=== PATIENT | male | born 1980 | race Caucasian/White ===

== ENCOUNTER 2018-10-07 13:11 | Emergency (ER) | payer MEDICAID ==
[~2018-10-07] VITALS: Ht 175.3 cm; Wt 59.1 kg
[2018-10-07 13:14] VITALS: BP 152/97
--- NOTE | 2018-10-07 13:20 | NUR ---
ATTEMPTED EKG IN TRIAGE. MACHINE WOULD NOT READ. TRIED X2, MACHINE WOULD NOT READ. PT MOVED TO ROOM 19 TO USE ANOTHER MACHINE
[2018-10-07] MEDS ORDERED: aspirin 81mg tab.chew PO ONE (13:50)
[2018-10-07 14:07] LABS: BASOPHILS # (AUTO) 0.2 X10'3 (0-0.2); BASOPHILS % (AUTO) 1.8 % (0-1); EOSINOPHILS # (AUTO) 0.1 X10'3 (0-0.9); EOSINOPHILS % (AUTO) 1.2 % (0-6); HEMATOCRIT 43.2 % (42.0-52.0); HEMOGLOBIN 14.8 g/dl (14.0-17.9); LYMPHOCYTES # (AUTO) 2.5 X10'3 (1.1-4.8); LYMPHOCYTES % (AUTO) 26.1 % (21-51); MEAN CORPUSCULAR HEMOGLOBIN 30.4 PG (27.0-31.0); MEAN CORPUSCULAR HGB CONC 34.2 g/dL (33.0-36.5); MEAN CORPUSCULAR VOLUME 88.8 FL (78-98); MEAN PLATELET VOLUME 8.5 FL (7.4-10.4); MONOCYTES # (AUTO) 0.8 X10'3 (0-0.9); MONOCYTES % (AUTO) 7.9 % (2-12); NEUTROPHILS # (AUTO) 6.1 X10'3 (1.8-7.7); PLATELET COUNT 343 X10'3 (140-440); RED BLOOD COUNT 4.86 X10'6 (4.70-6.10); RED CELL DISTRIBUTION WIDTH 14.2 % (11.5-14.5); WHITE BLOOD COUNT 9.7 X10'3 (4.5-11.0)
[2018-10-07 14:14] LABS: ALANINE AMINOTRANSFERASE 28 U/L (12-78); ALBUMIN 4.3 G/DL (3.4-5.0); ALBUMIN/GLOBULIN RATIO 1.2 (1.1-1.5); ALKALINE PHOSPHATASE 123 IU/L (46-116); ANION GAP 14 (8-16); ASPARTATE AMINO TRANSFERASE 20 U/L (10-37); BILIRUBIN,TOTAL 0.5 MG/DL (0.1-1.0); BLOOD UREA NITROGEN 9 MG/DL (7-18); BUN/CREATININE RATIO 11.1 (5.4-32.0); CALCIUM 9.3 MG/DL (8.5-10.1); CHLORIDE 101 MMOL/L (99-107); CREATININE 0.81 MG/DL (0.60-1.10); GLUCOSE 85 MG/DL (70-104); SODIUM 140 MMOL/L (135-145); TOTAL CARBON DIOXIDE 25.5 MMOL/L (24-32); TOTAL PROTEIN 7.9 G/DL (6.4-8.2); eGFR > 90 ML/MIN
[2018-10-07 14:21] LABS: MAGNESIUM 1.8 MG/DL (1.5-2.4); POTASSIUM 3.1 MMOL/L (3.5-5.1)
[2018-10-07] MEDS ORDERED: potassium Cl 20 mEq SR tablet PO STA (17:01)
[2018-10-07] MEDS ORDERED: ondansetron 4mg rapidly disintigrating tab PO ONE (17:05)
== END 2018-10-07 18:17 | disposition home or self-care (01) ==
LOC: ER 13:11
DX: R07.9 Chest pain, unspecified (principal); J44.9 Chronic obstructive pulmonary disease, unspecified; F12.90 Cannabis use, unspecified, uncomplicated; Z87.891 Personal history of nicotine dependence; Z88.6 Allergy status to analgesic agent
CPT/HCPCS: 36415; 71045; 80053; 83735; 83880; 84484; 85025; 93005; 99284

== ENCOUNTER 2021-05-18 17:01 | Emergency (ER) | payer MEDICAID ==
[~2021-05-18] VITALS: Ht 177.8 cm; Wt 68.2 kg
[2021-05-18 19:06] VITALS: BP 163/108
== END 2021-05-19 01:07 | disposition left against medical advice (07) ==
LOC: ER 17:02
DX: Z53.21 Procedure and treatment not carried out due to patient leaving prior to being seen by health care provider (principal)

== ENCOUNTER 2023-01-17 18:27 | Emergency (ER) | payer MEDICAID ==
[~2023-01-17] VITALS: Ht 175.3 cm; Wt 65.9 kg
[2023-01-17 18:51] VITALS: BP 160/103
[2023-01-17] MEDS ORDERED: ibuprofen 200mg tablet PO ONE (19:10)
[2023-01-17] MEDS ORDERED: LIDOcaine 1% W/epiNEPHrine 1:100,000 20ml vial SQ ONE (19:10)
== END 2023-01-17 20:37 ==
LOC: ER 18:27
DX: S01.111A Laceration without foreign body of right eyelid and periocular area, initial encounter (principal); Y04.8XXA Assault by other bodily force, initial encounter; Y93.89 Activity, other specified; Y92.89 Other specified places as the place of occurrence of the external cause; Y99.8 Other external cause status
CPT/HCPCS: 12011; 70450; 70486; 72125; 99284

== ENCOUNTER 2023-07-15 23:19 | Inpatient (IN) | payer MEDICAID ==
[~2023-07-15] VITALS: Ht 175.3 cm; Wt 68.2 kg
[2023-07-15 23:51] LABS: BASOPHILS # (AUTO) 0.2 X10'3 (0-0.2); BASOPHILS % (AUTO) 0.6 % (0-1); EOSINOPHILS % (AUTO) 0.2 % (0-6); HEMATOCRIT 51.6 % (42.0-52.0); HEMOGLOBIN 17.5 g/dl (14.0-17.9); LYMPHOCYTES # (AUTO) 2.5 X10'3 (1.1-4.8); LYMPHOCYTES % (AUTO) 8.4 % (21-51); MEAN CORPUSCULAR HEMOGLOBIN 30.8 PG (27.0-31.0); MEAN CORPUSCULAR HGB CONC 33.9 g/dL (33.0-36.5); MEAN CORPUSCULAR VOLUME 90.7 FL (78-98); MEAN PLATELET VOLUME 7.6 FL (7.4-10.4); MONOCYTES # (AUTO) 1.9 X10'3 (0-0.9); MONOCYTES % (AUTO) 6.5 % (2-12); NEUTROPHILS # (AUTO) 25.4 X10'3 (1.8-7.7); NEUTROPHILS % (AUTO) 84.3 % (42-75); PLATELET COUNT 479 X10'3 (140-440); RED BLOOD COUNT 5.69 X10'6 (4.70-6.10); RED CELL DISTRIBUTION WIDTH 14.6 % (11.5-14.5)
[2023-07-15 23:56] LABS: WHITE BLOOD COUNT 30.1 X10'3 (4.5-11.0)
[2023-07-16] LABS: ALANINE AMINOTRANSFERASE 58 U/L (12-78); ALBUMIN 4.4 G/DL (3.4-5.0); ALBUMIN/GLOBULIN RATIO 1.2 (1.1-1.5); ALKALINE PHOSPHATASE 195 IU/L (46-116); ANION GAP 18 (8-16); ASPARTATE AMINO TRANSFERASE 34 U/L (10-37); BILIRUBIN,TOTAL 0.4 MG/DL (0.1-1.0); BLOOD UREA NITROGEN 13 MG/DL (7-18); BUN/CREATININE RATIO 8.9 (10.0-20.0); CALCIUM 9.7 MG/DL (8.5-10.1); CHLORIDE 99 MMOL/L (99-107); CREATININE 1.46 MG/DL (0.60-1.10); GLUCOSE 121 MG/DL (70-104); POTASSIUM 3.5 MMOL/L (3.5-5.1); SODIUM 139 MMOL/L (135-145); TOTAL CARBON DIOXIDE 22.1 MMOL/L (24-32); TOTAL PROTEIN 8.2 G/DL (6.4-8.2); eCRCL 63 ML/MIN; eGFR 53 ML/MIN
[2023-07-16 00:07] LABS: PRO BRAIN NATRIURETIC PEPTIDE < 30 PG/ML (0-125)
[2023-07-16] MEDS ORDERED: ringers solution, lacted 1,000 ML IV ONE (00:10)
[2023-07-16 00:14] LABS: TOTAL CELLS COUNTED 100
[2023-07-16 00:16] LABS: PLATELET ESTIMATE INCREASED; STOMATOCYTES FEW
[2023-07-16] MEDS ORDERED: iohexol 350MG/ML 100ml bottle IV ONE (00:23)
[2023-07-16 00:44] LABS: CREATINE KINASE 115 U/L (39-308); ETHANOL 153 MG/DL (<10)
[2023-07-16 01:10] LABS: ABG HCO3 17.6 mmol/L (22.0-26.0); ABG OXYGEN SATURATION 97.6 % (94-97); ABG PCO2 (T) 21.3 mmHg (35.0-48.0); ABG PH (T) 7.536 (7.340-7.440); ABG PO2 (T) 90.6 mmHg (75.0-100.0); ALLEN'S TEST POSITIVE; FCOHb 1.8 % (0.0-3.9); FHHb 2.3 % (0.0-5.0); FMetHb 0.5 % (0.0-1.5); FO2Hb 95.4 % (94-97); MODE ROOM AIR; TOTAL HEMOGLOBIN 17.5 G/dl (14.0-17.9)
[2023-07-16 01:34] LABS: APTT 27 SECONDS (22-32); PROTHROMBIN TIME 10.4 SECONDS (9.0-12.0)
[2023-07-16 01:38] LABS: BILIRUBIN,URINE NEGATIVE (Neg); CLARITY,URINE SLIGHTLY CLOUDY (Clear); COLOR,URINE YELLOW (Yellow); GLUCOSE, URINE NEGATIVE (Neg); KETONES,URINE 40 mg/dl (Neg); LEUKOCYTE ESTERASE ,URINE NEGATIVE (Neg); NITRITES, URINE NEGATIVE (Neg); OCCULT BLOOD,URINE TRACE-INTACT (Neg); PH,URINE 5.5 (4.8-8.0); PROTEIN,URINE TRACE mg/dl (Neg); UROBILINOGEN,URINE 0.2 E.U/dL (0.2-1.0)
[2023-07-16 01:48] LABS: UA COLLECTION TYPE URINAL
[2023-07-16 01:50] LABS: MUCUS STRANDS MANY /LPF (Neg)
[2023-07-16 01:51] LABS: SQUAMOUS EPITHELIAL CELL,UR FEW /LPF (FEW)
[2023-07-16] MEDS ORDERED: piperacillin/tazo 4.5gm/100ml 100 ML IV ONE (01:52)
[2023-07-16 01:54] LABS: RENAL CELLS, URINE FEW /HPF
[2023-07-16 01:55] LABS: BACTERIA,URINE FEW /HPF (Neg); CAL OXALATE CRYSTALS FEW /HPF (NEGATIVE); RBC,URINE 0-2 /HPF (0-2); URINE AMPHETAMINE SCREEN NEGATIVE (Neg); URINE BARBITUATE SCREEN NEGATIVE (Neg); URINE BENZODIAZEPINES SCREEN NEGATIVE (Neg); URINE CANNABINOID SCREEN POSITIVE (Neg); URINE COCAINE SCREEN NEGATIVE (Neg); URINE METHADONE SCREEN NEGATIVE (Neg); URINE OPIATE SCREEN NEGATIVE (Neg); URINE PHENCYCLIDINE SCREEN NEGATIVE (Neg); WBC,URINE 0-4 /HPF (0-4)
[2023-07-16] MEDS ORDERED: magnesium Cl slow-release 64mg tablet PO PRN (02:10)
[2023-07-16] MEDS ORDERED: acetaminophen 325mg tablet PO PRN (02:10)
[2023-07-16] MEDS: normal saline 1000ml 1,000 ML IV SCH ×3 (02:10→19:23)
[2023-07-16] MEDS ORDERED: potassium Cl 20 mEq SR tablet PO PRN ×2 (02:10)
[2023-07-16] MEDS ORDERED: potassium Cl 40MEQ/1/2NS 520ml 520 ML IV PRN (02:10)
[2023-07-16] MEDS ORDERED: magnesium 4gm in 100ml NS 100 ML IV PRN (02:10)
[2023-07-16] MEDS ORDERED: magnesium 2GM in 50ml NS 50 ML IV PRN (02:10)
[2023-07-16] MEDS ORDERED: ondansetron/PF 4mg/2ml inj IV PRN (02:10)
[2023-07-16 03:12] LABS: LACTATE DEHYDROGENASE 187 U/L (85-227)
--- NOTE | 2023-07-16 05:21 | NUR ---
I have reviewed and agree with all interventions, assessments performed and documented by JONATAN Burk.
--- NOTE | 2023-07-16 06:48 | NUR ---
pt is stable and sleeping vitals are wnl and report given states patient isd not a threat or violent
[2023-07-16] MEDS: acetaminophen 325mg tablet PO SCH ×2 (08:00→17:01)
[2023-07-16 10:00] VITALS: BP 151/88; PULSE 104; RESP 18; TEMP 98.4; O2SAT 99
[2023-07-16 14:35] LABS: BASOPHILS # (AUTO) 0.1 X10'3 (0-0.2); BASOPHILS % (AUTO) 0.5 % (0-1); EOSINOPHILS % (AUTO) 0 % (0-6); HEMATOCRIT 43.5 % (42.0-52.0); HEMOGLOBIN 14.5 g/dl (14.0-17.9); LYMPHOCYTES # (AUTO) 1.6 X10'3 (1.1-4.8); LYMPHOCYTES % (AUTO) 11.3 % (21-51); MEAN CORPUSCULAR HEMOGLOBIN 30.5 PG (27.0-31.0); MEAN CORPUSCULAR HGB CONC 33.4 g/dL (33.0-36.5); MEAN CORPUSCULAR VOLUME 91.4 FL (78-98); MEAN PLATELET VOLUME 7.9 FL (7.4-10.4); NEUTROPHILS # (AUTO) 11.2 X10'3 (1.8-7.7); NEUTROPHILS % (AUTO) 81.2 % (42-75); PLATELET COUNT 360 X10'3 (140-440); RED BLOOD COUNT 4.75 X10'6 (4.70-6.10); RED CELL DISTRIBUTION WIDTH 14.5 % (11.5-14.5); WHITE BLOOD COUNT 13.9 X10'3 (4.5-11.0)
[2023-07-16 18:00] VITALS: BP 146/95; PULSE 106; RESP 16; TEMP 98.9; O2SAT 98
--- NOTE | 2023-07-16 18:00 | NUR ---
Patient in room [facility]TH[facility] 4021. I have received report from LIZA Gamboa and had the opportunity to ask questions and assume patient care.
[2023-07-16] MEDS: enoxaparin 40mg/0.4ml syringe SQ SCH (19:26)
[2023-07-16 20:00] VITALS: RESP 16; O2SAT 96
[2023-07-16] MEDS ORDERED: temazepam 15mg capsule PO PRN (21:00)
[2023-07-16 22:00] VITALS: BP 115/73; PULSE 94; RESP 16; TEMP 98.4; O2SAT 96
[2023-07-16] MEDS ORDERED: NO HOME MEDS (22:51)
[2023-07-17] MEDS: normal saline 1000ml 1,000 ML IV SCH ×3 (01:23→20:00)
[2023-07-17 05:54] LABS: BASOPHILS # (AUTO) 0.1 X10'3 (0-0.2); BASOPHILS % (AUTO) 0.9 % (0-1); EOSINOPHILS % (AUTO) 0.5 % (0-6); HEMATOCRIT 44.8 % (42.0-52.0); HEMOGLOBIN 14.7 g/dl (14.0-17.9); LYMPHOCYTES # (AUTO) 1.8 X10'3 (1.1-4.8); LYMPHOCYTES % (AUTO) 19.1 % (21-51); MEAN CORPUSCULAR HEMOGLOBIN 30.5 PG (27.0-31.0); MEAN CORPUSCULAR HGB CONC 32.8 g/dL (33.0-36.5); MEAN CORPUSCULAR VOLUME 93.1 FL (78-98); MEAN PLATELET VOLUME 8.5 FL (7.4-10.4); MONOCYTES # (AUTO) 0.9 X10'3 (0-0.9); MONOCYTES % (AUTO) 9.2 % (2-12); NEUTROPHILS # (AUTO) 6.6 X10'3 (1.8-7.7); NEUTROPHILS % (AUTO) 70.3 % (42-75); PLATELET COUNT 344 X10'3 (140-440); RED BLOOD COUNT 4.82 X10'6 (4.70-6.10); RED CELL DISTRIBUTION WIDTH 14.5 % (11.5-14.5); WHITE BLOOD COUNT 9.5 X10'3 (4.5-11.0)
[2023-07-17 06:00] VITALS: BP 121/78; PULSE 91; RESP 16; TEMP 98.8; O2SAT 98
[2023-07-17 06:20] LABS: ALANINE AMINOTRANSFERASE 37 U/L (12-78); ALBUMIN 3.2 G/DL (3.4-5.0); ALKALINE PHOSPHATASE 132 IU/L (46-116); ANION GAP 10 (8-16); ASPARTATE AMINO TRANSFERASE 30 U/L (10-37); BILIRUBIN,TOTAL 0.9 MG/DL (0.1-1.0); BLOOD UREA NITROGEN 5 MG/DL (7-18); BUN/CREATININE RATIO 7.1 (10.0-20.0); CHLORIDE 106 MMOL/L (99-107); GLUCOSE 82 MG/DL (70-104); POTASSIUM 3.6 MMOL/L (3.5-5.1); SODIUM 140 MMOL/L (135-145); TOTAL CARBON DIOXIDE 23.8 MMOL/L (24-32); TOTAL PROTEIN 6.4 G/DL (6.4-8.2); eCRCL 131 ML/MIN; eGFR > 90 ML/MIN
[2023-07-17] MEDS: acetaminophen 325mg tablet PO SCH ×3 (08:30→19:36)
[2023-07-17 09:40] VITALS: RESP 16; O2SAT 98
[2023-07-17 09:54] VITALS: RESP 16; O2SAT 98
[2023-07-17 10:00] VITALS: BP 145/86; PULSE 98; RESP 18; TEMP 99.2; O2SAT 99
[2023-07-17 18:00] VITALS: BP 148/92; PULSE 97; RESP 18; TEMP 97.5; O2SAT 98
--- NOTE | 2023-07-17 18:00 | NUR ---
Patient in room ORTHO 4021. I have received report from Lesli DE JESUS and had the opportunity to ask questions and assume patient care.
--- NOTE | 2023-07-17 18:00 | NUR ---
Patient stable. Reported off to oncoming nurse Deena Bardales RN
[2023-07-17] MEDS: enoxaparin 40mg/0.4ml syringe SQ SCH (20:00)
--- NOTE | 2023-07-17 22:32 | NUR ---
ASSUMED CARE OF PATIENT FROM ITALIA DE JESUS WITH VERBAL REPORT AT 2200. PATIENT RESTING COMFORTABLY AT THIS TIME, NO DISTRESS NOTED.
--- NOTE | 2023-07-17 22:38 | NUR ---
Report given to Barbara DE JESUS and she will take over care of him.
[2023-07-18] MEDS: normal saline 1000ml 1,000 ML IV SCH (02:10)
--- NOTE | 2023-07-18 03:18 | NUR ---
Pt refused to have new iv placed and for the ivf's to be running earlier in the shift.
[2023-07-18 05:35] LABS: BASOPHILS # (AUTO) 0.1 X10'3 (0-0.2); BASOPHILS % (AUTO) 0.6 % (0-1); EOSINOPHILS # (AUTO) 0.1 X10'3 (0-0.9); EOSINOPHILS % (AUTO) 1.2 % (0-6); HEMATOCRIT 48.5 % (42.0-52.0); HEMOGLOBIN 16.4 g/dl (14.0-17.9); LYMPHOCYTES # (AUTO) 2.4 X10'3 (1.1-4.8); LYMPHOCYTES % (AUTO) 26.5 % (21-51); MEAN CORPUSCULAR HEMOGLOBIN 31.2 PG (27.0-31.0); MEAN CORPUSCULAR HGB CONC 33.8 g/dL (33.0-36.5); MEAN CORPUSCULAR VOLUME 92.4 FL (78-98); MEAN PLATELET VOLUME 8.3 FL (7.4-10.4); MONOCYTES % (AUTO) 10.6 % (2-12); NEUTROPHILS # (AUTO) 5.5 X10'3 (1.8-7.7); NEUTROPHILS % (AUTO) 61.1 % (42-75); PLATELET COUNT 346 X10'3 (140-440); RED BLOOD COUNT 5.24 X10'6 (4.70-6.10); RED CELL DISTRIBUTION WIDTH 14.2 % (11.5-14.5); WHITE BLOOD COUNT 9.1 X10'3 (4.5-11.0)
[2023-07-18 06:23] LABS: ALANINE AMINOTRANSFERASE 36 U/L (12-78); ALBUMIN 3.6 G/DL (3.4-5.0); ALKALINE PHOSPHATASE 138 IU/L (46-116); ANION GAP 13 (8-16); ASPARTATE AMINO TRANSFERASE 27 U/L (10-37); BLOOD UREA NITROGEN 7 MG/DL (7-18); BUN/CREATININE RATIO 9.7 (10.0-20.0); CALCIUM 9.5 MG/DL (8.5-10.1); CHLORIDE 103 MMOL/L (99-107); CREATININE 0.72 MG/DL (0.60-1.10); GLUCOSE 88 MG/DL (70-104); POTASSIUM 3.2 MMOL/L (3.5-5.1); SODIUM 139 MMOL/L (135-145); TOTAL CARBON DIOXIDE 22.6 MMOL/L (24-32); TOTAL PROTEIN 7.1 G/DL (6.4-8.2); eCRCL 128 ML/MIN; eGFR > 90 ML/MIN
--- NOTE | 2023-07-18 06:47 | NUR ---
Patient in room [facility]TH[facility] 4021. I have received report from Barbara DE JESUS and had the opportunity to ask questions and assume patient care.
--- NOTE | 2023-07-18 06:57 | NUR ---
Problems reprioritized. Patient report given, questions answered & plan of care reviewed with TILA CHEUNG.
[2023-07-18] MEDS: acetaminophen 325mg tablet PO SCH (08:26)
[2023-07-18 11:00] VITALS: BP 118/67; PULSE 75; RESP 16; TEMP 98.7; O2SAT 98
[2023-07-18] MEDS ORDERED: PENI500T2 PO (11:24)
[2023-07-18] MEDS ORDERED: AMOX-419 PO (11:28)
--- NOTE | 2023-07-18 16:06 | NUR ---
Patient discharged home. Patient very agitated with Dr. Avalos. Staff had to call security to have patient escorted out. Patient had no IV. patient potassium 3.2 and educated on it being low. one dose of 20 meq given. All patient belongings left with patient. Patient education on potassium foods given with discharge paper work. Signed by patient.
== END 2023-07-18 13:30 | disposition home or self-care (01) | DRG 203 ==
LOC: ER 23:19 → ED HOLD 07-16 02:19 → ORTHO 4S 07-16 08:04
PROVIDERS: ADMIT Internal Medicine; ATTEND Internal Medicine
PROC: B32T1ZZ Computerized Tomography (CT Scan) of Left Pulmonary Artery using Low Osmolar Contrast (ICD-10-PCS; principal; 2023-07-16)
PROC: B3201ZZ Computerized Tomography (CT Scan) of Thoracic Aorta using Low Osmolar Contrast (ICD-10-PCS; 2023-07-16)
PROC: B32S1ZZ Computerized Tomography (CT Scan) of Right Pulmonary Artery using Low Osmolar Contrast (ICD-10-PCS; 2023-07-16)
DX: R07.89 Other chest pain (principal); E87.3 Alkalosis; D72.829 Elevated white blood cell count, unspecified; D75.1 Secondary polycythemia; M54.2 Cervicalgia; R68.84 Jaw pain; F10.10 Alcohol abuse, uncomplicated; F17.200 Nicotine dependence, unspecified, uncomplicated; Z20.822 Contact with and (suspected) exposure to COVID-19; F41.9 Anxiety disorder, unspecified; J44.9 Chronic obstructive pulmonary disease, unspecified; G43.909 Migraine, unspecified, not intractable, without status migrainosus; Z88.5 Allergy status to narcotic agent; Z88.6 Allergy status to analgesic agent
CPT/HCPCS: 36415; 36600; 70450; 70486; 71045; 71275; 72125; 80053; 80305; 80320; 81001; 82550; 82803; 83605; 83615; 83880; 84145; 84484; 85007; 85018; 85025; 85610; 85730; 87040; 87081; 87811; 93306; 99285; G0378; J1650; J2543; J3490; J7030; J7120; Q9967

== ENCOUNTER 2024-02-10 13:50 | Outpatient (CLI) | payer MEDICAID ==
[~2024-02-10 13:50] MED LIST: NO HOME MEDS
== END 2024-02-10 23:59 | disposition home or self-care (01) ==
LOC: RAD 13:50
PROVIDERS: ATTEND Family Medicine
DX: M25.421 Effusion, right elbow (principal); M25.521 Pain in right elbow
CPT/HCPCS: 73080

== ENCOUNTER 2024-03-02 13:05 | Emergency (ER) | payer MEDICAID ==
[~2024-03-02] VITALS: Ht 175.3 cm; Wt 56.0 kg
[2024-03-02 13:06] VITALS: BP 138/81; PULSE 97; RESP 18; TEMP 100.1; O2SAT 99
== END 2024-03-02 14:52 | disposition home or self-care (01) ==
LOC: ER 13:05
DX: E86.0 Dehydration (principal); R55 Syncope and collapse; G43.909 Migraine, unspecified, not intractable, without status migrainosus; J44.9 Chronic obstructive pulmonary disease, unspecified; F41.9 Anxiety disorder, unspecified; F10.90 Alcohol use, unspecified, uncomplicated; F12.90 Cannabis use, unspecified, uncomplicated; Z88.8 Allergy status to other drugs, medicaments and biological substances
CPT/HCPCS: 99281

== ENCOUNTER 2025-05-14 10:37 | Emergency (ER) | payer MEDICAID ==
[~2025-05-14] VITALS: Ht 175.3 cm; Wt 68.2 kg
[2025-05-14 10:46] VITALS: TEMP 98.5
--- NOTE | 2025-05-14 11:32 | RADIOLOGY REPORT ---
Exam: CT CT ABDOMEN PELVIS History: RLQ pain Comparison Study: None Technique: Multidetector spiral CT of the abdomen and pelvis was performed from lung bases to pubic s ymphysis. Imaging was performed without intravenous contrast. Coronal and sagittal multiplanar reform ats were obtained from the axial data set by the technologist. Radiation Dose : 1. Abdomen/Pelvis: CTDIvol 14.72 mGy, DLP 762.44 mGy*cm. Findings: Evaluation of vasculature and solid organs is limited due to lack of intravenous contrast use. Lung Bases: Lung bases are clear. Visualized portions of the heart and pericardium are unremarkable. Liver: The liver is normal in size. No focal lesions. Gallbladder and Biliary Tree: The gallbladder is unremarkable. No intrahepatic or extrahepatic bilia ry ductal dilatation. Spleen: Unremarkable Pancreas: The pancreas is grossly unremarkable. Adrenal Glands: Unremarkable Kidneys: Kidneys are unremarkable without calculi or hydronephrosis. GI tract: The stomach is grossly normal in appearance. No evidence of small bowel wall thickening or abnormal dilatation to suggest bowel obstruction. Submucosal fatty deposition in the ascending, trans verse, descending and sigmoid colon down to the rectum. No Fat stranding. The appendix is visualized and is normal. Peritoneum/mesentery/retroperitoneum. No evidence of free intraperitoneal air. No ascites. No evidenc e of suspicious lymphadenopathy. Abdominal Wall: Unremarkable. Vasculature: The visualized abdominal aorta is normal in size and caliber. Evaluation of abdominal a nd pelvic vessels is limited due to lack of intravenous contrast. Urinary Bladder: Grossly unremarkable for degree of distention. Pelvic Organs: Unremarkable Musculoskeletal: No aggressive focal bony lesions, acute fractures or dislocation. Soft tissues: There is a fat containing right inguinal hernia and tiny fat containing left inguinal h ernia. IMPRESSION: 1. Submucosal fatty deposition throughout the colon, nonspecific and can be seen with prior colitis. 2. However, no acute inflammatory changes are identified. 3. Otherwise, no acute abdominopelvic abnormalities. 4. Normal appendix.
[2025-05-14 12:04] LABS: MEAN PLATELET VOLUME 7.5 FL (7.4-10.4); RED CELL DISTRIBUTION WIDTH 14.2 % (11.5-14.5)
[2025-05-14 12:24] LABS: CREATININE 0.84 MG/DL (0.60-1.10); TOTAL CARBON DIOXIDE 26.0 MMOL/L (24-32); eCRCL 107 ML/MIN; eGFR > 90 ML/MIN
--- NOTE | 2025-05-14 15:11 | Physician Documentation ---
History of Present Illness Chief Complaint: Abdominal Pain Stated Complaint: FLANK PAIN Time Seen by MD: 14:27 [facility] Mode of Arrival: Ambulatory HPI Patient is seen today with complaints of abdominal pain mostly in the right lower quadrant however patient states the pain is generalized. Patient states he came in today because he felt a pop in his right lower ribcage and felt immediate significant pain and came in tonight after that. Patient denies any changes in bowel or bladder habits or chest pain or shortness of breath or abdominal pain or nausea, vomiting, diarrhea. Patient has no other concern or complaint at this time. Medication Reconciliation Allergies: Coded Allergies: codeine (Verified Allergy, Unknown, 05/14/25) hydrocodone bit (Verified Allergy, Unknown, MAKES ME SWEAT AND ITCHY, ) Miscellaneous Medications Home Med List (No Home Medications), (Reported) Past Medical History Past Medical History: Migraine, COPD, Anxiety Past Surgical History: noncontributory Alcohol Use: Alcoholic Drug Use: marijuana Lives with: Family Lives In: Home Review of Systems Constitutional: Denies: chills, fever, weakness Eyes: Denies: pain, blurred vision ENT: Denies: ear pain, nose pain, throat pain, mouth pain Respiratory: Denies: cough, shortness of breath Cardiovascular: Denies: chest pain, palpitations Gastrointestinal: Denies: abdominal pain, nausea, vomiting Genitourinary: Denies: burning, dysuria Male Genitalia: Denies: penile discharge, testicular pain Neurological: Denies: headache, dizziness Musculoskeletal: Denies: pain, swelling Integumentary: Denies: rash, lesions Allergic/Immunologic: Denies: hives, itching Hematologic/Lymphatic: Denies: no symptoms reported Psychiatric: Denies: depression, anxiety Physical Exam Vital Signs: Temperature: 98.5, Source: Oral, Heart Rate: 124, Respiratory Rate: 14, BP: 128/101, Pulse Oximetry: 97, Weight: 68.180 Physical Exam General: Awake and Alert, no acute distress. HEENT: Conjunctiva pink, Sclera clear, Mucus Membranes moist. Neck: Supple without masses and tenderness. Resp: Unlabored. Lungs clear to auscultation bilaterally. Heart: Regular Rate and rhythm, normal S1 and S2 without murmur, rub or gallop. Ribs/chest: Patient does have very significant tenderness to palpation of the right lower ribcage. No ecchymosis or swelling noted. Abdomen: Patient on exam has tenderness to palpation of the right lower quadrant with guarding without rebound tenderness. Abdomen is soft and nondistended. Patient has no significant right upper quadrant tenderness to palpation. Extremities: No cyanosis,clubbing or edema. Skin: Warm and Dry. Progress Results/Orders Results/Orders Vital Signs 05/14/25 05/14/25 10:46 14:40 Temp 98.5 Pulse 124 Resp 18 14 B/P (MAP) 128/101 Pulse Ox 97 Laboratory Tests Test 05/14/25 11:50 White Blood Count 9.7 Red Blood Count 5.45 Hemoglobin 16.6 Hematocrit 48.3 Mean Corpuscular Volume 88.6 Mean Corpuscular Hemoglobin 30.4 Mean Corpuscular Hemoglobin Concent 34.3 Red Cell Distribution Width 14.2 Platelet Count 463 H Mean Platelet Volume 7.5 Neutrophils (%) (Auto) 72.4 Lymphocytes (%) (Auto) 19.5 L Monocytes (%) (Auto) 6.0 Eosinophils (%) (Auto) 0.8 Basophils (%) (Auto) 1.3 H Neutrophils # (Auto) 7.0 Lymphocytes # (Auto) 1.9 Monocytes # (Auto) 0.6 Eosinophils # (Auto) 0.1 Basophils # (Auto) 0.1 CBC Comment Sodium Level 139 Potassium Level 3.7 Chloride Level 101 Carbon Dioxide Level 26.0 Anion Gap 12 Blood Urea Nitrogen 15 Creatinine 0.84 Estimated GFR/1.73 m2 > 90 BUN/Creatinine Ratio 17.9 Glucose Level 105 H Calcium Level 9.6 Total Bilirubin 0.7 Aspartate Amino Transf (AST/SGOT) 18 Alanine Aminotransferase (ALT/SGPT) 33 Alkaline Phosphatase 144 H Total Protein 8.1 Albumin 4.2 Globulin 3.9 Albumin/Globulin Ratio 1.1 Lipase 46 Chemistry Comments EKG/XRAY/CT/US/VASC/MRI CT : Impression CAT SCAN Patient: ELLE CARCAMO Medical Record: [id number] HOSPITAL : 1980, Age: 44 Sex: Male Location: ER Patient Status: [facility] ER Service Date/Time: 05/14/251107 Ordering Physician: NANCY ENRIQUEZ AGILE QA TESTER Exam: CT ABDOMEN PELVIS Exam: CT CT ABDOMEN PELVIS History: RLQ pain Comparison Study: None Technique: Multidetector spiral CT of the abdomen and pelvis was performed from lung bases to pubic symphysis. Imaging was performed without intravenous contrast. Coronal and sagittal multiplanar reformats were obtained from the axial data set by the technologist. Radiation Dose : 1. Abdomen/Pelvis: CTDIvol 14.72 mGy, DLP 762.44 mGy*cm. Findings: Evaluation of vasculature and solid organs is limited due to lack of intravenous contrast use. Lung Bases: Lung bases are clear. Visualized portions of the heart and pericardium are unremarkable. Liver: The liver is normal in size. No focal lesions. Gallbladder and Biliary Tree: The gallbladder is unremarkable. No intrahepatic or extrahepatic biliary ductal dilatation. Spleen: Unremarkable Pancreas: The pancreas is grossly unremarkable. Adrenal Glands: Unremarkable Kidneys: Kidneys are unremarkable without calculi or hydronephrosis. GI tract: The stomach is grossly normal in appearance. No evidence of small bowel wall thickening or abnormal dilatation to suggest bowel obstruction. Submucosal fatty deposition in the ascending, transverse, descending and sigmoid colon down to the rectum. No Fat stranding. The appendix is visualized and is normal. Peritoneum/mesentery/retroperitoneum. No evidence of free intraperitoneal air. No ascites. No evidence of suspicious lymphadenopathy. Abdominal Wall: Unremarkable. Vasculature: The visualized abdominal aorta is normal in size and caliber. Evaluation of abdominal and pelvic vessels is limited due to lack of intravenous contrast. Urinary Bladder: Grossly unremarkable for degree of distention. Pelvic Organs: Unremarkable Musculoskeletal: No aggressive focal bony lesions, acute fractures or dislocation. Soft tissues: There is a fat containing right inguinal hernia and tiny fat containing left inguinal hernia. IMPRESSION: 1. Submucosal fatty deposition throughout the colon, nonspecific and can be seen with prior colitis. 2. However, no acute inflammatory changes are identified. 3. Otherwise, no acute abdominopelvic abnormalities. 4. Normal appendix. Electronically Signed by:ADELE ZHANG MD Date & Time: 05/14/25 1130 Dictated by: ADELE ZHANG MD Dictation date and time: 05/14/25 1107 Primary Care Provider: NO PRIMARY CARE PROVIDER cc: NANCY ENRIQUEZ AGILE QA TESTER ~ Medical Decision Making Findings Patient is seen today with complaints of abdominal pain mostly in the right lower quadrant however patient states the pain is generalized. Patient states he came in today because he felt a pop in his right lower ribcage and felt immediate significant pain and came in tonight after that. Patient denies any changes in bowel or bladder habits or chest pain or shortness of breath or ab dominal pain or nausea, vomiting, diarrhea. Patient has no other concern or complaint at this time. Patient did have CT scan of the abdomen and pelvis with contrast that showed no sign of acute appendicitis, sign of possible previous colitis. No other acute intra-abdominal processes. Patient was strongly recommended to follow up with primary care for referral to colonoscopy for further eval and treatment. Patient may take Tylenol and ibuprofen as needed for symptomatic relief. Patient will return to ED with any worsening, concerning or changing symptoms. Departure Disposition: 01 HOME / SELF CARE / HOMELESS Impression: Primary Impression: Abdominal pain Qualified Codes: R10.31 - Right lower quadrant pain Discharge Instructions: Abdominal Pain (Nonspecific) Additional Instructions: Patient was given Toradol shot in the ED today. Patient did have CT scan of the abdomen and pelvis with contrast that showed no sign of acute appendicitis, sign of possible previous colitis. No other acute intra-abdominal processes. Patient was strongly recommended to follow up with primary care for referral to colonoscopy for further eval and treatment. Patient may take Tylenol and ibuprofen as needed for symptomatic relief. Patient will return to ED with any worsening, concerning or changing symptoms. Referrals: NO PRIMARY CARE PROVIDER (PCP) Signature Scribe Signature: No scribe Attestation: No scribe HARDEEP WATTS PAC May 14, 2025 15:11
[2025-05-14] MEDS: ketorolac trometh 30MG/ML vial 30 MG/ML VIAL IM STA (15:18)
[2025-05-14 15:30] VITALS: BP 120/89; PULSE 104; RESP 16; O2SAT 98
== END 2025-05-14 15:34 | disposition home or self-care (01) ==
LOC: ER 10:38
DX: R10.31 Right lower quadrant pain (principal); J44.9 Chronic obstructive pulmonary disease, unspecified; G43.909 Migraine, unspecified, not intractable, without status migrainosus; F41.9 Anxiety disorder, unspecified; F12.90 Cannabis use, unspecified, uncomplicated; F10.90 Alcohol use, unspecified, uncomplicated; Z88.5 Allergy status to narcotic agent; Y90.5 Blood alcohol level of 100-119 mg/100 ml
CPT/HCPCS: 36415; 74176; 80053; 83690; 85025; 96372; 99285; J1885